=== PATIENT | female | born 1960 | race Caucasian/White ===

== ENCOUNTER 2017-06-10 20:51 | Emergency (ER) | payer OTHER, SELFPAY ==
[2017-06-10 20:52] VITALS: BP 143/58; PULSE 70; RESP 14; TEMP 36.8; O2SAT 96; BMI 34.1
--- NOTE | 2017-06-10 21:50 | RAD_ITS ---
STUDY: X-RAY - RIGHT WRIST REASON FOR EXAM: Female, 56 years old. Falling injury of the right wrist. TECHNIQUE: 3 view(s) of the wrist were obtained. COMPARISON: None. FINDINGS: Acute comminuted fracture of the distal radius with a transverse component extending toward the distal radioulnar joint and a longitudinal component extending into the radiocarpal joint. Mild dorsal impaction of the distal radius with loss of the usual volar angle. Scratch that Large degenerative cyst of the navicular. Degenerative changes of the navicular/multangular articulation. Normal carpal articulations. Normal carpometacarpal articulation of the thumb. Normal second through fifth carpometacarpal articulations. Normal visualized metacarpal bones. Fracture related soft tissue swelling. RAD/Wrist min 3 Views IMPRESSION: Acute comminuted intra-articular mild dorsal impaction fracture of the distal radius. Negative for ulnar fracture. Degenerative changes as stated above. Electronically Signed: Jessica Solomon MD at 22:07 EST , Service support ,
--- NOTE | 2017-06-10 22:40 | ED.VISSUMM ---
- ER Visit Summary Date of Service: 06/10/17 Chief Complaint: Right wrist pain History of Present Illness: The patient is a [address] Purdy. She is right-hand dominant. She reports she slipped on the snow and had a fall onto an outstretched right hand. She reports she has pain in her right wrist is 10 out of 10 with movement 5 out of 10 after Advil. She denies any paresthesias distally. She denies any other injuries. No blow to the head or loss of consciousness. No neck or back pain. Physical Examination: Vitals: Stable. Afebrile. Neck: No vertebral tenderness. Full ROM without difficulty. Cleared by NEXUS criteria. Back: No vertebral tenderness. General: A&O x 3. NAD. Cardiovascular exam: Regular rate and rhythm, no murmur, rub or gallop. Respiratory exam: Chest nontender. No crepitus. Clear to auscultation bilaterally. No wheezes or stridor. Abdominal exam: Soft, nontender, nondistended, normal bowel sounds. No pain in RUQ or LUQ specifically. No peritoneal signs. Extremity: Severe tenderness palpation over the distal radius with an obvious deformity. She is neurovascular intact distally. Test Results: Right wrist x-ray shows a comminuted intra-articular distal radius fracture without dorsal angulation. Emergency Department Course and Treatment: Patient refused pain medications. The x-ray was discussed with Dr. Nolan. She was placed in a sugar tong splint. Treatment Plan: She will be discharged with [place]. Instructed follow-up Dr. Nolan in 1 week for another exam. Ice and elevate. Disposition: To home in improved and stable condition. Impression: 1. Right distal radius fracture. 2. Sugar tong splint, fabricated. This note was generated with [employer] dictation software. It may contain incorrect words, spelling, and punctuation that were not noted in review of the chart prior to signing ED Disposition - Plan for ED Patient: Disposition: Home or Assisted Living Chief Complaint: Upper Extremity Injury Instructions: ED Fx Forearm Radius Ulna No Redu Requ Prescriptions: Hydrocodone Bitart/Apap 5-325 [[place] 5/325] 1 - 2 tablet PO Q4H PRN PRN 5 Days #20 tablet PRN Reason: Pain Referrals: Gómez Nolan DO [STAFF PHYSICIAN] - 5-7 Days
[2017-06-10] MEDS: HYDROcodone Bitartrate/Apap 5/325 Tablet PO (22:54)
[2017-06-10 22:57] VITALS: BP 133/75; PULSE 65; RESP 16
== END 2017-06-10 22:58 | disposition home or self-care (01) ==
LOC: ED 22:15
PROVIDERS: Emergency Provider Emergency Medicine; Family Provider Family Medicine; PCP Family Medicine
DX: S52.571A Other intraarticular fracture of lower end of right radius, initial encounter for closed fracture (principal); W00.0XXA Fall on same level due to ice and snow, initial encounter; Y93.9 Activity, unspecified; Y92.9 Unspecified place or not applicable
CPT/HCPCS: 29125; 73110; 99283

== ENCOUNTER → 2017-06-22 14:18 | Outpatient (CLI) | payer OTHER, SELFPAY ==
--- NOTE | 2017-06-22 14:19 | RAD_ITS ---
STUDY: X-RAY - RIGHT WRIST REASON FOR EXAM: Female, 56 years old. Follow-up of fracture. TECHNIQUE: 3 view(s) of the wrist were obtained through casting material. COMPARISON: June 10, 2017 FINDINGS: A cast obscures much of the bony detail. There is stable mild arthrosis of the radiocarpal and radial carpal rows. There is arthrosis of the first carpal metacarpal joint unchanged. There is stable cystic change in the scaphoid. The distal radial fracture with intra-articular extension is stable with minimal callus formation and no complications. The soft tissue structures are unremarkable. RAD/Wrist min 3 Views IMPRESSION: Stable osteoarthritic changes and distal radial fracture. No complications noted. Electronically Signed: Geraldo Patton MD at 18:59 EST , Service support ,
== END ==
PROVIDERS: Family Provider Family Medicine; PCP Family Medicine; Visit Provider Orthopaedic Surgery
DX: S52.571D Other intraarticular fracture of lower end of right radius, subsequent encounter for closed fracture with routine healing (principal)
CPT/HCPCS: 73110

== ENCOUNTER → 2017-08-03 14:45 | Outpatient (CLI) | payer OTHER, SELFPAY ==
--- NOTE | 2017-08-03 14:47 | RAD_ITS ---
STUDY: X-RAY - RIGHT WRIST REASON FOR EXAM: Female, 56 years old. Follow-up for distal radial fracture. TECHNIQUE: 3 view(s) of the wrist were obtained. COMPARISON: Comparison is made with prior study dated June 22, 2017. FINDINGS: Healed distal radial fracture. Normal radiocarpal articulation. Normal distal radioulnar articulation. Normal carpal bones. Normal carpal articulations. Normal carpometacarpal articulation of the thumb. Normal second through fifth carpometacarpal articulations. Normal visualized metacarpal bones. The soft tissue structures are unremarkable. The alignment is maintained. RAD/Wrist min 3 Views IMPRESSION: Healed distal radial fracture. Electronically Signed: Juan Jose Sanchez MD at 15:10 EDT Tel [phone], Service support ,
== END ==
PROVIDERS: Family Provider Family Medicine; PCP Family Medicine; Visit Provider Orthopaedic Surgery
DX: S52.571D Other intraarticular fracture of lower end of right radius, subsequent encounter for closed fracture with routine healing (principal)
CPT/HCPCS: 73110